=== PATIENT | female | born 1955 | race Caucasian/White ===

== ENCOUNTER 2017-03-29 05:59 | Day surgery (SDC) | payer BC ==
[2017-03-29] MEDS ORDERED: PROPOFOL 20 ML (06:40)
[2017-03-29] MEDS ORDERED: NEOSTIGMINE 3 MG/3 ML SYRINGE (06:40)
[2017-03-29] MEDS ORDERED: LIDOCAINE 2% (SDV) 5 ML INJ (06:40)
[2017-03-29] MEDS ORDERED: ROCURONIUM 50 MG INJ (06:40)
[2017-03-29] MEDS ORDERED: GLYCOPYRROLATE 1 MG INJ (06:40)
[2017-03-29] MEDS ORDERED: MIDAZOLAM 1 MG/ML 2 ML INJ (06:41)
[2017-03-29] MEDS ORDERED: DEXAMETHASONE 4 MG/ML 1 ML INJ (06:41)
[2017-03-29] MEDS ORDERED: ONDANSETRON 4 MG INJ (06:41)
[2017-03-29] MEDS ORDERED: FENTAnyl 50 MCG/ML VIAL (06:41)
[2017-03-29] MEDS ORDERED: ROPIVACAINE 0.5 % 30 ML VIAL (06:44)
[2017-03-29 06:46] LABS: ADD MAN DIFF? NO
[2017-03-29 06:49] LABS: BASOPHILS % 0.7 % (0.0-2.0); EOSINOPHILS # 0.1 10^3/ul (0.0-0.5); EOSINOPHILS % 2.7 % (0.0-7.0); HEMATOCRIT 42.1 % (37.0-47.0); LYMPHOCYTES # 1.3 10^3/ul (0.8-2.9); LYMPHOCYTES % 29.3 % (15.0-51.0); MEAN CORPUSCULAR HGB CONC 33.3 g/dl (32.0-37.0); MEAN CORPUSCULAR VOLUME 96.1 fl (82.0-101.0); MEAN PLATELET VOLUME 11.4 fl (7.4-10.4); MONOCYTE # 0.3 10^3/ul (0.3-0.9); MONOCYTES % 7.6 % (0.0-11.0); NEUTROPHIL # 2.7 10^3/ul (1.6-7.5); NEUTROPHILS % 59.3 % (39.0-77.0); PLATELET COUNT 202 10^3/UL (140-415); RED BLOOD COUNT 4.38 10^6/ul (4.20-5.40); RED CELL DISTRIBUTION WIDTH 13.7 % (11.5-14.5)
[2017-03-29 06:49] LABS: WHITE BLOOD COUNT 4.5 10^3/ul (4.8-10.8)
[2017-03-29] MEDS ORDERED: hydrALAzine 20 MG INJ IV (07:00)
[2017-03-29] MEDS ORDERED: HYDROmorphONE (0.2 MG/ML) 10ML SYG IV ×3 (07:00)
[2017-03-29] MEDS ORDERED: DIPHENHYDRAMINE 50 MG INJ IV (07:00)
[2017-03-29] MEDS ORDERED: OXYCODONE/ACETAMINOPHEN (5/325) TAB PO ×2 (07:00)
[2017-03-29] MEDS ORDERED: ATROPINE 1 MG/10 ML SYRINGE IV (07:00)
[2017-03-29] MEDS ORDERED: EPHEDrine SULFATE 50 MG/5 ML SYG IV (07:00)
[2017-03-29] MEDS ORDERED: MIDAZOLAM 1 MG/ML 2 ML INJ IV (07:00)
[2017-03-29] MEDS ORDERED: ONDANSETRON 4 MG INJ IV (07:00)
[2017-03-29] MEDS ORDERED: LABETALOL HCL 20MG INJ IV (07:00)
[2017-03-29] MEDS ORDERED: morphine (1 MG/ML) 10ML SYRINGE IV ×3 (07:00)
[2017-03-29] MEDS ORDERED: MEPERIDINE 25 MG INJ IV (07:00)
[2017-03-29] MEDS ORDERED: FENTAnyl 50 MCG/ML VIAL IV (07:00)
[2017-03-29 07:11] LABS: INR 0.83; PROTIME 11.5 Sec (11.9-14.9); PT RATIO 0.9
[2017-03-29 07:12] LABS: PARTIAL THROMBOPLASTIN TIME 26.9 Sec (25.0-35.0)
[2017-03-29 07:13] LABS: ALANINE AMINOTRANSFERASE 16 IU/L (13-69); ALBUMIN 4.6 g/dl (3.3-4.9); ALBUMIN/GLOBULIN RATIO 1.35; ALKALINE PHOSPHATASE 148 IU/L (42-121); ANION GAP 22 (8-16); ASPARTATE AMINO TRANSFERASE 19 IU/L (15-46); BILIRUBIN,INDIRECT 0.1 mg/dl (0-1.1); BILIRUBIN,TOTAL 0.1 mg/dl (0.2-1.3); CARBON DIOXIDE 28 mmol/L (21-31); CHLORIDE 100 mmol/L (97-110); GLUCOSE 84 mg/dl (70-220)
[2017-03-29 07:15] LABS: CALCIUM 9.9 mg/dl (8.4-10.2); CREATININE 5.84 mg/dl (0.44-1.00); POTASSIUM 5.5 mmol/L (3.5-5.1); SODIUM 144 mmol/L (135-144)
[2017-03-29 07:17] LABS: BLOOD UREA NITROGEN 44 mg/dl (7-20)
[2017-03-29] MEDS ORDERED: CEFAZOLIN 1 GM INJ (07:17)
[2017-03-29] MEDS ORDERED: VANCOMYCIN 1 GM (PMX) 250 ML (07:20)
[2017-03-29] MEDS ORDERED: VANCOMYCIN 1 GM (PMX) 250 ML IVPB (07:30)
[2017-03-29] MEDS ORDERED: VANCOMYCIN 1 GM in SODIUM CHLORIDE 0.45 % 250 ML IVPB (07:30)
[2017-03-29] MEDS: GELATIN SIZE 100 SPONGE (08:27)
[2017-03-29] MEDS: THROMBIN 5000 UNIT VIAL (08:28)
[2017-03-29] MEDS: HEPARIN 1000 UNITS/ML 10 ML INJ (08:29)
[2017-03-29] MEDS ORDERED: HEPARIN 1000 UNITS/ML 10 ML INJ (08:33)
[2017-03-29] MEDS: LIDOCAINE 1% (MPF) 30 ML INJ (09:38)
== END 2017-03-29 11:28 | disposition home or self-care (01) ==
LOC: SDS 05:59
DX: I12.0 Hypertensive chronic kidney disease with stage 5 chronic kidney disease or end stage renal disease (principal); N18.6 End stage renal disease; E11.9 Type 2 diabetes mellitus without complications; E78.5 Hyperlipidemia, unspecified
CPT/HCPCS: 36821; 80053; 82962; 85025; 85610; 85730

== ENCOUNTER 2017-05-20 07:21 | Inpatient (IN) | payer BC ==
[2017-05-20] MEDS: DILTIAZEM-D5W 125MG/125ML DRIP 125 ML IV (08:07)
[2017-05-20] MEDS: DILTIAZEM 25 MG INJ IV (08:07)
[2017-05-20 08:09] LABS: ADD MAN DIFF? NO
[2017-05-20 08:11] LABS: BASOPHILS % 0.4 % (0.0-2.0); EOSINOPHILS # 0.1 10^3/ul (0.0-0.5); EOSINOPHILS % 1.1 % (0.0-7.0); HEMATOCRIT 36.5 % (37.0-47.0); LYMPHOCYTES # 0.7 10^3/ul (0.8-2.9); LYMPHOCYTES % 15.8 % (15.0-51.0); MEAN CORPUSCULAR HEMOGLOBIN 31.7 pg (29.0-33.0); MEAN CORPUSCULAR HGB CONC 32.9 g/dl (32.0-37.0); MEAN CORPUSCULAR VOLUME 96.3 fl (82.0-101.0); MEAN PLATELET VOLUME 11.4 fl (7.4-10.4); MONOCYTE # 0.2 10^3/ul (0.3-0.9); MONOCYTES % 4.9 % (0.0-11.0); NEUTROPHIL # 3.5 10^3/ul (1.6-7.5); NEUTROPHILS % 77.6 % (39.0-77.0); PLATELET COUNT 181 10^3/UL (140-415); RED BLOOD COUNT 3.79 10^6/ul (4.20-5.40); RED CELL DISTRIBUTION WIDTH 14.4 % (11.5-14.5)
[2017-05-20 08:11] LABS: WHITE BLOOD COUNT 4.5 10^3/ul (4.8-10.8)
[2017-05-20 08:29] LABS: ALANINE AMINOTRANSFERASE 12 IU/L (13-69); ALBUMIN 4.4 g/dl (3.3-4.9); ALBUMIN/GLOBULIN RATIO 1.46; ALKALINE PHOSPHATASE 147 IU/L (42-121); ANION GAP 18 (8-16); ASPARTATE AMINO TRANSFERASE 17 IU/L (15-46); BILIRUBIN,INDIRECT 0.7 mg/dl (0-1.1); BILIRUBIN,TOTAL 0.7 mg/dl (0.2-1.3); BLOOD UREA NITROGEN 17 mg/dl (7-20); CALCIUM 9.3 mg/dl (8.4-10.2); CARBON DIOXIDE 32 mmol/L (21-31); CHLORIDE 98 mmol/L (97-110); CREATINE KINASE 49 IU/L (23-200); CREATININE 3.21 mg/dl (0.44-1.00); GLUCOSE 119 mg/dl (70-220); POTASSIUM 3.7 mmol/L (3.5-5.1); SODIUM 144 mmol/L (135-144); TOTAL PROTEIN 7.4 g/dl (6.1-8.1)
[2017-05-20 08:31] LABS: INR 0.94; PROTIME 12.7 Sec (11.9-14.9)
[2017-05-20 08:41] LABS: B-TYPE NATRIURETIC PEPTIDE 6260 PG/ML (0-125); CK INDEX 1.4; CK-MB 0.68 ng/ml (0.0-2.4); TROPONIN-I 0.023 ng/ml (0.00-0.12)
[2017-05-20 09:47] LABS: PARTIAL THROMBOPLASTIN TIME 112.3 Sec (25.0-35.0)
[2017-05-20] MEDS ORDERED: ONDANSETRON 4 MG INJ IV (10:00)
[2017-05-20] MEDS ORDERED: ACETAMINOPHEN 325 MG TAB PO (14:30)
[2017-05-20] MEDS ORDERED: NACL 0.9% 3 ML SYG IV (14:30)
[2017-05-20] MEDS ORDERED: DEXTROSE 50% 50 ML SYRINGE IV ×2 (15:00)
[2017-05-20] MEDS ORDERED: GLUCOSE GEL 15 GRAM TUBE BUCCAL (15:00)
[2017-05-20] MEDS ORDERED: GLUCOSE GEL 15 GRAM TUBE PO ×2 (15:00)
[2017-05-20] MEDS ORDERED: GLUCAGON 1 MG INJ IM (15:00)
[2017-05-20] MEDS: ATORVASTATIN 10 MG TAB PO (16:06)
[2017-05-20] MEDS: INSULIN ASPART [NOVOLOG] 3 ML PEN SC ×2 (18:00→21:00)
[2017-05-20] MEDS: SEVELAMER CARBONATE 0.8 GM PKT PO (21:50)
[2017-05-21] MEDS: ACETAMINOPHEN 325 MG TAB PO (00:17)
[2017-05-21] MEDS: INSULIN ASPART [NOVOLOG] 3 ML PEN SC ×4 (07:35→21:00)
[2017-05-21] MEDS: SEVELAMER CARBONATE 0.8 GM PKT PO ×3 (09:51→21:15)
[2017-05-21] MEDS: HEPARIN 1000 UNITS/ML 10 ML INJ CATHETER ×2 (11:30→12:33)
[2017-05-21] MEDS: APIXABAN 5 MG TABLET PO (21:22)
[2017-05-22] MEDS: INSULIN ASPART [NOVOLOG] 3 ML PEN SC ×4 (07:35→21:23)
[2017-05-22] MEDS: APIXABAN 5 MG TABLET PO ×2 (08:04→21:16)
[2017-05-22] MEDS: SEVELAMER CARBONATE 0.8 GM PKT PO ×3 (08:05→21:19)
[2017-05-22] MEDS: METOPROLOL (XL) 25 MG TAB PO (08:05)
[2017-05-22] MEDS: DILTIAZEM (CD) 120 MG CAP PO (15:55)
[2017-05-23] MEDS: INSULIN ASPART [NOVOLOG] 3 ML PEN SC ×3 (07:35→17:49)
[2017-05-23] MEDS: METOPROLOL (XL) 25 MG TAB PO (09:00)
[2017-05-23] MEDS: SEVELAMER CARBONATE 0.8 GM PKT PO ×2 (09:14→13:00)
[2017-05-23] MEDS: APIXABAN 5 MG TABLET PO (09:14)
[2017-05-23] MEDS: DILTIAZEM (CD) 120 MG CAP PO (09:15)
[2017-05-23] MEDS: HEPARIN 1000 UNITS/ML 10 ML INJ CATHETER (15:02)
[2017-05-23 15:46] LABS: HEPATITIS B SURFACE ANTIGEN NEGATIVE (NEGATIVE)
== END 2017-05-23 18:09 | disposition home or self-care (01) | DRG 308 ==
LOC: MS3 09:45 → E/R 07:21
PROC: 5A1D70Z Performance of Urinary Filtration, Intermittent, Less than 6 Hours Per Day (ICD-10-PCS; principal; 2017-05-21)
DX: I48.0 Paroxysmal atrial fibrillation (principal); N18.6 End stage renal disease; E11.22 Type 2 diabetes mellitus with diabetic chronic kidney disease; N25.81 Secondary hyperparathyroidism of renal origin; I12.0 Hypertensive chronic kidney disease with stage 5 chronic kidney disease or end stage renal disease; I72.1 Aneurysm of artery of upper extremity; D63.1 Anemia in chronic kidney disease; Z86.73 Personal history of transient ischemic attack (TIA), and cerebral infarction without residual deficits; Z99.2 Dependence on renal dialysis; Z79.84 Long term (current) use of oral hypoglycemic drugs
CPT/HCPCS: 71045; 80053; 82550; 82553; 82962; 83880; 84484; 85025; 85610; 85730; 87340; 90935; 93005; 93931; 96365; 96366; 96375; 99291-25

== ENCOUNTER 2017-06-03 21:44 | Emergency (ER) | payer BC ==
[2017-06-03 23:00] LABS: ADD MAN DIFF? NO
[2017-06-03 23:02] LABS: BASOPHILS % 0.5 % (0.0-2.0); EOSINOPHILS # 0.1 10^3/ul (0.0-0.5); EOSINOPHILS % 2.3 % (0.0-7.0); HEMATOCRIT 34.1 % (37.0-47.0); HEMOGLOBIN 11.4 g/dl (12.0-16.0); LYMPHOCYTES # 1.6 10^3/ul (0.8-2.9); LYMPHOCYTES % 25.4 % (15.0-51.0); MEAN CORPUSCULAR HGB CONC 33.4 g/dl (32.0-37.0); MEAN CORPUSCULAR VOLUME 95.8 fl (82.0-101.0); MEAN PLATELET VOLUME 11.1 fl (7.4-10.4); MONOCYTE # 0.4 10^3/ul (0.3-0.9); MONOCYTES % 6.6 % (0.0-11.0); NEUTROPHILS % 64.7 % (39.0-77.0); PLATELET COUNT 200 10^3/UL (140-415); RED BLOOD COUNT 3.56 10^6/ul (4.20-5.40); RED CELL DISTRIBUTION WIDTH 14.7 % (11.5-14.5)
[2017-06-03 23:02] LABS: WHITE BLOOD COUNT 6.1 10^3/ul (4.8-10.8)
[2017-06-03] MEDS: DILTIAZEM 30 MG TAB PO (23:11)
[2017-06-03] MEDS: DILTIAZEM 25 MG INJ IV (23:12)
[2017-06-03 23:22] LABS: ANION GAP 19 (8-16); BLOOD UREA NITROGEN 18 mg/dl (7-20); CALCIUM 8.6 mg/dl (8.4-10.2); CARBON DIOXIDE 27 mmol/L (21-31); CHLORIDE 98 mmol/L (97-110); CREATININE 3.23 mg/dl (0.44-1.00); GLUCOSE 94 mg/dl (70-220); POTASSIUM 3.7 mmol/L (3.5-5.1); SODIUM 140 mmol/L (135-144)
[2017-06-03] MEDS ORDERED: BISACODYL 10 MG SUPP PR (23:30)
[2017-06-03] MEDS ORDERED: DOCUSATE SODIUM 100 MG CAP PO (23:30)
[2017-06-03] MEDS ORDERED: ACETAMINOPHEN 325 MG TAB PO ×2 (23:30)
[2017-06-03] MEDS ORDERED: HYDROCODONE/APAP (5/325) TAB PO ×2 (23:30)
[2017-06-03] MEDS ORDERED: ONDANSETRON 4 MG INJ IV ×2 (23:30)
[2017-06-03] MEDS ORDERED: NACL 0.9% 3 ML SYG IV (23:30)
[2017-06-03] MEDS ORDERED: MAGNESIUM HYDROXIDE 30ML CUP PO (23:30)
[2017-06-03 23:35] LABS: TROPONIN-I 0.036 ng/ml (0.00-0.12)
[2017-06-03] MEDS ORDERED: GLUCAGON 1 MG INJ IM (23:45)
[2017-06-03] MEDS ORDERED: GLUCOSE GEL 15 GRAM TUBE BUCCAL (23:45)
[2017-06-03] MEDS ORDERED: GLUCOSE GEL 15 GRAM TUBE PO ×2 (23:45)
[2017-06-03] MEDS ORDERED: DEXTROSE 50% 50 ML SYRINGE IV ×2 (23:45)
[2017-06-03 23:53] LABS: THYROID STIMULATING HORMONE 0.636 MIU/L (0.465-4.680)
[2017-06-04] MEDS: CINACALCET 30 MG TAB PO (00:03)
[2017-06-04 00:51] LABS: FREE T4 (FREE THYROXINE) 1.72 ng/dl (0.78-2.44)
[2017-06-04] MEDS: ACCU-CHEK XX ×3 (02:00→14:00)
[2017-06-04] MEDS: PANTOPRAZOLE (EC) 40 MG TAB PO (05:19)
[2017-06-04 06:07] LABS: WHITE BLOOD COUNT 6.5 10^3/ul (4.8-10.8)
[2017-06-04 06:07] LABS: ADD MAN DIFF? NO; BASOPHIL # 0.1 10^3/ul (0.0-0.1); BASOPHILS % 0.8 % (0.0-2.0); EOSINOPHILS # 0.1 10^3/ul (0.0-0.5); EOSINOPHILS % 1.4 % (0.0-7.0); HEMATOCRIT 31.9 % (37.0-47.0); HEMOGLOBIN 10.6 g/dl (12.0-16.0); LYMPHOCYTES # 1.4 10^3/ul (0.8-2.9); LYMPHOCYTES % 21.4 % (15.0-51.0); MEAN CORPUSCULAR HEMOGLOBIN 32.3 pg (29.0-33.0); MEAN CORPUSCULAR HGB CONC 33.2 g/dl (32.0-37.0); MEAN CORPUSCULAR VOLUME 97.3 fl (82.0-101.0); MEAN PLATELET VOLUME 11.4 fl (7.4-10.4); MONOCYTE # 0.5 10^3/ul (0.3-0.9); MONOCYTES % 6.9 % (0.0-11.0); NEUTROPHIL # 4.5 10^3/ul (1.6-7.5); NEUTROPHILS % 69.2 % (39.0-77.0); PLATELET COUNT 200 10^3/UL (140-415); RED BLOOD COUNT 3.28 10^6/ul (4.20-5.40)
[2017-06-04 06:43] LABS: CREATINE KINASE 42 IU/L (23-200)
[2017-06-04 06:46] LABS: ANION GAP 15 (8-16); BLOOD UREA NITROGEN 22 mg/dl (7-20); CALCIUM 8.4 mg/dl (8.4-10.2); CARBON DIOXIDE 27 mmol/L (21-31); CHLORIDE 101 mmol/L (97-110); GLUCOSE 100 mg/dl (70-220); POTASSIUM 4.4 mmol/L (3.5-5.1); SODIUM 139 mmol/L (135-144)
[2017-06-04 06:50] LABS: CK INDEX 1.6; CK-MB 0.69 ng/ml (0.0-2.4); TROPONIN-I 0.044 ng/ml (0.00-0.12)
[2017-06-04] MEDS: INSULIN ASPART [NOVOLOG] 3 ML PEN SC ×2 (08:00→12:00)
[2017-06-04] MEDS: DILTIAZEM (CD) 120 MG CAP PO (08:40)
[2017-06-04] MEDS: ARTIFICIAL TEARS 15 ML OPH BOTH EYES ×2 (08:40→12:54)
[2017-06-04] MEDS: APIXABAN 5 MG TABLET PO (08:41)
[2017-06-04] MEDS ORDERED: DILTIAZEM (CD) 120 MG CAP PO (09:00)
[2017-06-04] MEDS ORDERED: APIXABAN 5 MG TABLET PO (09:00)
[2017-06-04] MEDS: SEVELAMER CARBONATE 0.8 GM PKT PO ×2 (09:37→12:54)
[2017-06-04 12:11] LABS: CREATINE KINASE 41 IU/L (23-200)
[2017-06-04 12:17] LABS: CK INDEX 1.8; CK-MB 0.72 ng/ml (0.0-2.4); TROPONIN-I 0.037 ng/ml (0.00-0.12)
[2017-06-04] MEDS ORDERED: ATORVASTATIN 10 MG TAB PO (21:00)
== END 2017-06-04 15:19 | disposition home or self-care (01) ==
LOC: E/R 21:44
DX: I48.91 Unspecified atrial fibrillation (principal); N18.6 End stage renal disease; E11.9 Type 2 diabetes mellitus without complications; Z79.84 Long term (current) use of oral hypoglycemic drugs; Z91.040 Latex allergy status; Z99.2 Dependence on renal dialysis
CPT/HCPCS: 36415; 71045; 71046; 80048; 82550; 82553; 82962; 84439; 84443; 84484; 85025; 93005; 93306; 96374; 99291-25

== ENCOUNTER 2017-07-12 09:31 | Day surgery (SDC) | payer BC ==
[~2017-07-12 09:31] MED LIST: LIDOCAINE 100 MG SYRINGE; MIDAZOLAM 1 MG/ML 2 ML INJ; ROPIVACAINE 0.5 % 30 ML VIAL; VANCOMYCIN 1 GM 250 ML IVPB
[2017-07-12 10:49] LABS: POTASSIUM 5.6 mmol/L (3.5-5.1)
[2017-07-12 11:12] LABS: INR 1.02; PROTIME 13.5 Sec (11.9-14.9); PT RATIO 1.1
[2017-07-12 11:13] LABS: PARTIAL THROMBOPLASTIN TIME 28.8 Sec (25.0-35.0)
[2017-07-12] MEDS ORDERED: DESMOPRESSIN 16.5 MCG in SOD CHLORIDE 0.9% 50 ML IV (12:00)
[2017-07-12] MEDS ORDERED: FENTAnyl 50 MCG/ML VIAL (12:14)
[2017-07-12] MEDS: LIDOCAINE 1% (MPF) 30 ML INJ (12:24)
[2017-07-12] MEDS: BUPIVACAINE 0.5% (SDV) 30 ML INJ (12:24)
[2017-07-12] MEDS: HEPARIN 1000 UNITS/ML 10 ML INJ (12:25)
[2017-07-12] MEDS: GELATIN SIZE 100 SPONGE (12:26)
[2017-07-12] MEDS: THROMBIN 5000 UNIT VIAL (12:26)
== END 2017-07-12 14:50 | disposition home or self-care (01) ==
LOC: SDS 09:31
DX: I12.0 Hypertensive chronic kidney disease with stage 5 chronic kidney disease or end stage renal disease (principal); N18.6 End stage renal disease; E11.9 Type 2 diabetes mellitus without complications
CPT/HCPCS: 36819; 82962; 84132; 85610; 85730

== ENCOUNTER 2017-08-08 17:26 | Emergency (ER) | payer BC ==
[2017-08-08] MEDS ORDERED: HYDROCODONE/APAP (5/325) TAB PO (19:00)
[2017-08-08 19:04] LABS: ADD MAN DIFF? NO
[2017-08-08 19:07] LABS: BASOPHILS % 0.6 % (0.0-2.0); EOSINOPHILS # 0.1 10^3/ul (0.0-0.5); EOSINOPHILS % 2.2 % (0.0-7.0); HEMATOCRIT 33.7 % (37.0-47.0); HEMOGLOBIN 11.2 g/dl (12.0-16.0); LYMPHOCYTES # 1.4 10^3/ul (0.8-2.9); LYMPHOCYTES % 25.6 % (15.0-51.0); MEAN CORPUSCULAR HEMOGLOBIN 32.1 pg (29.0-33.0); MEAN CORPUSCULAR HGB CONC 33.2 g/dl (32.0-37.0); MEAN CORPUSCULAR VOLUME 96.6 fl (82.0-101.0); MONOCYTE # 0.4 10^3/ul (0.3-0.9); MONOCYTES % 7.4 % (0.0-11.0); NEUTROPHIL # 3.4 10^3/ul (1.6-7.5); NEUTROPHILS % 63.8 % (39.0-77.0); PLATELET COUNT 181 10^3/UL (140-415); RED BLOOD COUNT 3.49 10^6/ul (4.20-5.40); RED CELL DISTRIBUTION WIDTH 14.1 % (11.5-14.5)
[2017-08-08 19:07] LABS: WHITE BLOOD COUNT 5.4 10^3/ul (4.8-10.8)
[2017-08-08 19:25] LABS: ANION GAP 16 (8-16); BLOOD UREA NITROGEN 26 mg/dl (7-20); CALCIUM 8.9 mg/dl (8.4-10.2); CARBON DIOXIDE 29 mmol/L (21-31); CHLORIDE 101 mmol/L (97-110); CREATININE 4.11 mg/dl (0.44-1.00); GLUCOSE 90 mg/dl (70-220); POTASSIUM 3.5 mmol/L (3.5-5.1); SODIUM 142 mmol/L (135-144)
== END 2017-08-08 19:45 | disposition home or self-care (01) ==
LOC: E/R 17:26
DX: I48.0 Paroxysmal atrial fibrillation (principal); E11.9 Type 2 diabetes mellitus without complications; N18.6 End stage renal disease; I12.0 Hypertensive chronic kidney disease with stage 5 chronic kidney disease or end stage renal disease; Z79.84 Long term (current) use of oral hypoglycemic drugs; Z99.2 Dependence on renal dialysis
CPT/HCPCS: 80048; 85025; 93005; 99284-25

== ENCOUNTER 2017-09-20 07:20 | Day surgery (SDC) | payer BC ==
[2017-09-20 08:20] LABS: ADD MAN DIFF? NO
[2017-09-20 08:24] LABS: BASOPHILS % 0.4 % (0.0-2.0); EOSINOPHILS # 0.1 10^3/ul (0.0-0.5); EOSINOPHILS % 2.4 % (0.0-7.0); HEMATOCRIT 30.5 % (37.0-47.0); HEMOGLOBIN 10.2 g/dl (12.0-16.0); LYMPHOCYTES # 0.8 10^3/ul (0.8-2.9); LYMPHOCYTES % 13.9 % (15.0-51.0); MEAN CORPUSCULAR HEMOGLOBIN 32.8 pg (29.0-33.0); MEAN CORPUSCULAR HGB CONC 33.4 g/dl (32.0-37.0); MEAN CORPUSCULAR VOLUME 98.1 fl (82.0-101.0); MONOCYTE # 0.5 10^3/ul (0.3-0.9); MONOCYTES % 8.3 % (0.0-11.0); NEUTROPHIL # 4.1 10^3/ul (1.6-7.5); NEUTROPHILS % 74.4 % (39.0-77.0); PLATELET COUNT 239 10^3/UL (140-415); RED BLOOD COUNT 3.11 10^6/ul (4.20-5.40); RED CELL DISTRIBUTION WIDTH 14.3 % (11.5-14.5)
[2017-09-20 08:24] LABS: WHITE BLOOD COUNT 5.5 10^3/ul (4.8-10.8)
[2017-09-20 08:30] LABS: ADD UMIC YES; UR ASCORBIC ACID NEGATIVE (NEGATIVE); UR BACTERIA FEW /HPF (NONE SEEN); UR BILIRUBIN (Dip) NEGATIVE (NEGATIVE); UR BLOOD (Dip) 1+ mg/dL (NEGATIVE); UR CLARITY CLEAR (CLEAR); UR COLOR STRAW (YELLOW); UR GLUCOSE (Dip) 2+ mg/dL (NEGATIVE); UR KETONES (Dip) NEGATIVE (NEGATIVE); UR LEUKOCYTE ESTERASE (Dip) TRACE Leu/ul (NEGATIVE); UR NITRITE (Dip) NEGATIVE (NEGATIVE); UR RBC 1 /HPF (0-5); UR SPECIFIC GRAVITY (Dip) 1.004 (1.003-1.030); UR SQUAMOUS EPITHELIAL CELL FEW /HPF (FEW); UR TOTAL PROTEIN (Dip) 2+ mg/dl (NEGATIVE); UR UROBILINOGEN (Dip) NEGATIVE (NEGATIVE); UR WBC 1 /HPF (0-5)
[2017-09-20 08:44] LABS: INR 1.17; PARTIAL THROMBOPLASTIN TIME 32.5 Sec (25.0-35.0); PROTIME 15.1 Sec (11.9-14.9); PT RATIO 1.2
[2017-09-20 08:46] LABS: ANION GAP 20 (8-16); BLOOD UREA NITROGEN 27 mg/dl (7-20); CALCIUM 9.4 mg/dl (8.4-10.2); CARBON DIOXIDE 27 mmol/L (21-31); CHLORIDE 99 mmol/L (97-110); GLUCOSE 114 mg/dl (70-220); SODIUM 142 mmol/L (135-144)
[2017-09-20] MEDS ORDERED: LIDOCAINE 1% (MDV) 10 ML INJ ×2 (08:56→08:57)
[2017-09-20] MEDS ORDERED: IODIXANOL LOCM 50 ML BTL (08:57)
[2017-09-20] MEDS ORDERED: IOHEXOL 350MG/ML 50 ML BTL (08:57)
[2017-09-20] MEDS ORDERED: MIDAZOLAM 1 MG/ML 2 ML INJ (09:00)
[2017-09-20] MEDS ORDERED: FENTAnyl 50 MCG/ML VIAL (09:00)
== END 2017-09-20 10:35 | disposition home or self-care (01) ==
LOC: SDS 07:20
DX: I12.0 Hypertensive chronic kidney disease with stage 5 chronic kidney disease or end stage renal disease (principal); N18.6 End stage renal disease; E78.00 Pure hypercholesterolemia, unspecified
CPT/HCPCS: 36589; 37248; 80048; 81001; 82962; 85025; 85610; 85730